=== PATIENT | female | born 1960 | race Caucasian/White ===

== ENCOUNTER → 2021-03-03 | Outpatient (CLI) | payer OTHER ==
[~2021-03-03] MED LIST: AMLODIPINE BESY10 MG PO; ASPIRIN EC81 MG PO; ATORVASTATIN CA40 MG PO; BACLOFEN10 MG PO; CATAPRES 0.1MG0.1 MG PO; ECOTRIN81 MG PO; ELIQUIS 5 MG TAB5 MG PO; ELIQUIS5 MG PO; FARXIGA10 MG PO; FEOSOL325 MG PO; FORTAMET1000 MG PO; LIORESAL TAB 1010 MG PO; LIPITOR40 MG PO; LOPRESSOR 50 MG50 MG PO; METFORMIN HCL1000 MG PO; METOPROLOL TAR100 MG PO; METOPROLOL TART50 MG PO; MULTAQ 400 MG400 MG PO; RYTHMOL SR 225225 MG PO; RYTHMOL SR 325325 MG PO; SOTALOL AF80 MG PO; ZESTRIL 40 MG T40 MG PO; ZOCOR20 MG PO
[2021-03-03 07:29] LABS: HEMOGLOBIN 17.2 gm/dl (12.3-15.3); RED BLOOD COUNT 5.94 M/UL (4.00-5.10); WHITE BLOOD COUNT 10.9 K/UL (4.5-11.0)
[2021-03-03 07:53] LABS: BUN/CREATININE RATIO 38 (0-10)
== END ==
LOC: CATH 07:01
PROVIDERS: Internal Medicine Cardiovascular Disease
DX: I48.0 Paroxysmal atrial fibrillation (principal); I25.10 Atherosclerotic heart disease of native coronary artery without angina pectoris; I10 Essential (primary) hypertension; E78.5 Hyperlipidemia, unspecified; E11.9 Type 2 diabetes mellitus without complications; Z79.84 Long term (current) use of oral hypoglycemic drugs; Z79.899 Other long term (current) drug therapy; Z83.3 Family history of diabetes mellitus; Z82.49 Family history of ischemic heart disease and other diseases of the circulatory system; Z20.822 Contact with and (suspected) exposure to COVID-19
CPT/HCPCS: 36415; 80048; 82962; 85027; 92960; 93005; J1200; J1742; J2250; J2310; J3010; J7040